=== PATIENT | male | born 1950 | race Caucasian/White ===

== ENCOUNTER → 2018-04-19 | Outpatient (CLI) | payer OTHER, MEDICARE ==
[~2018-04-19] MED LIST: ASPIRIN325 PO; AZOR 5-40 MG T1 EACH PO; BETIMOL10 ML; BETIMOL15 ML OP; CELEXA 20 MG TA20 MG PO; CENTRUM SILVER1 EAC2 PO; COZAAR 50 MG TA50 M1 PO; CRESTOR10 MG PO; DEPAKOTE ER500 M1 PO; DEPAKOTE ER500 MG PO; DEPAKOTE500 MG PO; DILANTIN100 MG PO; DUREZOL5 ML; FISH OIL 1,0001 EAC5 PO; HYDROCODON-ACE1 EAC5 PO; LEXAPRO 10 MG T10 M1 PO; LISINOPRIL-HCT1 EACH PO; LOVASTAT40 PO; MEVACOR 20 MG T20 MG; NITROSTAT0.4 MG; OMEPRAZOLE20 M2 PO; PAXIL 20 MG TAB20 M1; PHENYTOIN SODI100 M3 PO; PLAVIX 75 MG TA75 MG PO; RESTORIL15 MG; SUPER B COMPLE150 MG PO; TEGRETOL XR400 MG PO; TEGRETOL100 MG/5 M PO; TYLENOL325 MG; VITAMIN D3400 UNIT PO; VITAMINC500 PO; XALATAN2.5 M1 OP; XANAX 0.5 MG0.5 MG PO
== END ==
LOC: M.ULTRA 04-17 10:30
DX: N43.2 Other hydrocele (principal); N50.89 Other specified disorders of the male genital organs

== ENCOUNTER → 2018-06-26 | Outpatient (CLI) | payer OTHER, MEDICARE ==
[2018-06-26 15:03] LABS: ABSOLUTE EOSINOPHILS 0.4 thou/uL (0.0-0.7); ABSOLUTE LYMPHOCYTES 2.9 thou/uL (0.8-5.3); ABSOLUTE MONOCYTES 0.5 thou/uL (0.0-1.2); ABSOLUTE NEUTROPHILS 2.8 thou/uL (1.6-8.1); BASOPHILS 0.6 %; EOSINOPHILS 5.5 %; HEMATOCRIT 40.9 % (42.0-52.0); HEMOGLOBIN 13.8 gm/dL (14.0-18.0); LYMPHOCYTES 43.9 %; MCH 31.2 pg (26.0-34.0); MCHC 33.8 g/dL (28.0-37.0); MCV 92.4 fL (80.0-100.0); MONOCYTES 7.1 %; MPV 8.8 fl. (7.2-11.1); NUCLEATED RBCS 0 /100WBC; PLATELET COUNT* 168 thou/uL (150-400); POLYS 42.9 %; RBC 4.42 mil/uL (4.50-6.00); RDW-CV 14.4 % (10.5-14.5); WBC 6.6 thou/uL (4.0-11.0)
[2018-06-26 15:16] LABS: ALBUMIN 3.1 g/dL (3.4-5.0); CALCIUM 8.3 mg/dL (8.5-10.1); POTASSIUM 4.1 mmol/L (3.5-5.1); TOTAL BILIRUBIN 0.3 mg/dL (<0.1-1.0)
[2018-06-26 15:46] LABS: DILANTIN 4.2 mcg/mL (10.0-20.0); VALPROIC ACID (DEPAKENE) 80.3 mcg/mL (50-100)
== END ==
LOC: M.LAB 14:28
PROVIDERS: Psychiatry & Neurology Neuromuscular Medicine
DX: R56.9 Unspecified convulsions (principal); I10 Essential (primary) hypertension

== ENCOUNTER → 2018-11-07 | Outpatient (CLI) | payer OTHER, MEDICARE ==
[2018-11-07 14:37] LABS: ABSOLUTE BASOPHILS 0.1 thou/uL (0.0-0.2); ABSOLUTE EOSINOPHILS 0.5 thou/uL (0.0-0.7); ABSOLUTE LYMPHOCYTES 2.4 thou/uL (0.8-5.3); ABSOLUTE MONOCYTES 0.6 thou/uL (0.0-1.2); ABSOLUTE NEUTROPHILS 3.2 thou/uL (1.6-8.1); BASOPHILS 1.4 %; EOSINOPHILS 7.3 %; HEMATOCRIT 45.8 % (42.0-52.0); HEMOGLOBIN 15.5 gm/dL (14.0-18.0); LYMPHOCYTES 35.5 %; MCH 32.2 pg (26.0-34.0); MCHC 33.9 g/dL (28.0-37.0); MCV 95.1 fL (80.0-100.0); MONOCYTES 9.1 %; MPV 8.7 fl. (7.2-11.1); NUCLEATED RBCS 0 /100WBC; PLATELET COUNT* 239 thou/uL (150-400); POLYS 46.7 %; RBC 4.81 mil/uL (4.50-6.00); RDW-CV 13.2 % (10.5-14.5); WBC 6.8 thou/uL (4.0-11.0)
[2018-11-07 14:51] LABS: ALBUMIN 3.3 g/dL (3.4-5.0); CALCIUM 8.8 mg/dL (8.5-10.1); CREATININE 1.2 mg/dL (0.6-1.3); POTASSIUM 3.9 mmol/L (3.5-5.1); TOTAL BILIRUBIN 0.3 mg/dL (<0.1-1.0)
== END ==
LOC: M.LAB 14:16
PROVIDERS: Psychiatry & Neurology Neuromuscular Medicine
DX: R56.9 Unspecified convulsions (principal); Z87.898 Personal history of other specified conditions

== ENCOUNTER → 2019-02-13 | Outpatient (CLI) | payer OTHER, MEDICARE | LOC: M.RAD 14:46 | DX: R07.89 Other chest pain (principal) ==

== ENCOUNTER → 2019-02-26 | Outpatient (CLI) | payer OTHER, MEDICARE | LOC: M.RAD 15:34 | DX: M50.13 Cervical disc disorder with radiculopathy, cervicothoracic region (principal); M47.22 Other spondylosis with radiculopathy, cervical region; M40.293 Other kyphosis, cervicothoracic region; R06.00 Dyspnea, unspecified; R05 Cough; R07.1 Chest pain on breathing ==

== ENCOUNTER → 2019-09-11 | Outpatient (CLI) | payer OTHER ==
[2019-09-11 14:04] LABS: ABSOLUTE BASOPHILS 0.1 thou/uL (0.0-0.2); ABSOLUTE EOSINOPHILS 0.5 thou/uL (0.0-0.7); ABSOLUTE LYMPHOCYTES 2.5 thou/uL (0.8-5.3); ABSOLUTE MONOCYTES 0.7 thou/uL (0.0-1.2); BASOPHILS 0.8 %; EOSINOPHILS 7.6 %; HEMATOCRIT 43.1 % (42.0-52.0); HEMOGLOBIN 14.6 gm/dL (14.0-18.0); LYMPHOCYTES 37.4 %; MCH 30.3 pg (26.0-34.0); MCHC 33.9 g/dL (28.0-37.0); MCV 89.4 fL (80.0-100.0); MONOCYTES 9.9 %; MPV 8.6 fl. (7.2-11.1); NUCLEATED RBCS 0 /100WBC; PLATELET COUNT* 224 thou/uL (150-400); POLYS 44.3 %; RBC 4.82 mil/uL (4.50-6.00); RDW-CV 14.4 % (10.5-14.5); WBC 6.8 thou/uL (4.0-11.0)
[2019-09-11 14:19] LABS: ALBUMIN 3.5 g/dL (3.4-5.0); CALCIUM 8.3 mg/dL (8.5-10.1); CREATININE 1.1 mg/dL (0.6-1.3); TOTAL BILIRUBIN 0.2 mg/dL (<0.1-1.0)
[2019-09-11 14:35] LABS: CARBAMAZEPINE 4.8 mcg/mL (3.0-12.0)
[2019-09-11 16:42] LABS: DILANTIN 5.5
== END ==
LOC: M.LAB 13:37
PROVIDERS: ATTEND Psychiatry & Neurology Neuromuscular Medicine
DX: G40.209 Localization-related (focal) (partial) symptomatic epilepsy and epileptic syndromes with complex partial seizures, not intractable, without status epilepticus (principal); Z85.89 Personal history of malignant neoplasm of other organs and systems; Z79.899 Other long term (current) drug therapy

== ENCOUNTER → 2020-08-12 | Outpatient (CLI) | payer OTHER ==
[2020-08-12 11:20] LABS: ABSOLUTE EOSINOPHILS 0.5 thou/uL (0.0-0.7); ABSOLUTE LYMPHOCYTES 2.7 thou/uL (0.8-5.3); ABSOLUTE MONOCYTES 0.8 thou/uL (0.0-1.2); ABSOLUTE NEUTROPHILS 3.4 thou/uL (1.6-8.1); BASOPHILS 0.5 %; EOSINOPHILS 6.2 %; LYMPHOCYTES 36.3 %; MCH 30.3 pg (26.0-34.0); MCHC 33.4 g/dL (28.0-37.0); MCV 90.9 fL (80.0-100.0); MONOCYTES 10.7 %; MPV 8.2 fl. (7.2-11.1); NUCLEATED RBCS 0 /100WBC; PLATELET COUNT* 222 thou/uL (150-400); POLYS 46.3 %; RBC 4.62 mil/uL (4.50-6.00); RDW-CV 14.9 % (10.5-14.5); WBC 7.4 thou/uL (4.0-11.0)
[2020-08-12 11:38] LABS: ALBUMIN 3.4 g/dL (3.4-5.0); CALCIUM 8.7 mg/dL (8.5-10.1); POTASSIUM 4.4 mmol/L (3.5-5.1); TOTAL BILIRUBIN 0.2 mg/dL (<0.1-1.0); TOTAL PROTEIN 8.1 g/dL (6.4-8.2)
[2020-08-12 11:48] LABS: PHENYTOIN 6.5 mcg/mL (10.0-20.0)
[2020-08-12 21:05] LABS: CARBAMAZEPINE 5.7 ug/mL (4.0-12.0)
== END ==
LOC: M.LAB 10:26
PROVIDERS: ATTEND Psychiatry & Neurology Neuromuscular Medicine
DX: G40.209 Localization-related (focal) (partial) symptomatic epilepsy and epileptic syndromes with complex partial seizures, not intractable, without status epilepticus (principal)

== ENCOUNTER 2020-11-12 09:57 | Observation (INO) | payer OTHER ==
[~2020-11-12] VITALS: Ht 177.8 cm; Wt 101.2 kg
[2020-11-12] VITALS (15 sets, daily range): BP systolic 145–176; BP diastolic 70–88
--- NOTE | ~2020-11-12 | H ---
[address] [address] HISTORY AND PHYSICAL Name: DHARMESH CHRISTOPHER Room: [address] [place] M.R.#: [id number] Admission: 11/12/20 Attend Phys: Dharmesh Muniz MD, Discharge: 11/13/20 Date of : 50 Report #: [id number] THIS REPORT FOR: cc: Krystle Kaur MD, Lin W. MD [facility],Medical Records Staff ~ Please refer to the History and Physical performed in the physician's office. By: [id number] Records Staff [facility] /JOSE
--- NOTE | ~2020-11-12 | D ---
[address] [address] DISCHARGE SUMMARY Name: DHARMESH CHRISTOPHER Room: [address] [place] MPavan#: [id number] Admission: 11/12/20 Attend Phys: Dharmesh Muniz MD, Discharge: 11/13/20 Date of : 50 Report #: [id number] THIS REPORT FOR: cc: Krystle Kaur MD, Lin W. MD Holkins, John M. MD [facility] ~ DATE OF DISCHARGE: 11/13/2020 FINAL DISCHARGE DIAGNOSES: 1. Unstable angina. 2. Abnormal nuclear stress test. 3. Coronary artery disease. 4. Hypertension. 5. Hyperlipidemia. 6. Obstructive sleep apnea. 7. Status post percutaneous coronary intervention to the proximal--mid left anterior descending. PROCEDURES: On 11/12/2020 -- left heart catheterization, left ventriculography, selective coronary arteriography, fractional flow reserve calculated pertinent to the proximal--mid LAD lesion and angioplasty, atherectomy and stenting of the proximal--mid LAD. HOSPITAL COURSE: The patient is a 70-year-old male who recently noted marked increase in dyspnea on exertion. He is able to climb only one flight of steps without becoming markedly dyspneic. Nuclear stress test was abnormal with apical defect. In this context with known risk factors of hypertension and hyperlipidemia, I performed cardiac catheterization on 11/12/2020. That study revealed significant coronary artery disease, characterized by the following: A. A 75% tubular proximal--mid LAD in-stent restenosis. B. A 60% narrowing of the distal circumflex. LV function was normal with estimated ejection fraction of 55%-60%. Given this data, I elected to proceed with physiologic assessment of the proximal--mid LAD and FFR was performed. The resting Pd/Pa was abnormal at 0.89. After adenosine provocation, the FFR was borderline abnormal at 0.81. Given the recent symptomatic status, the abnormal nuclear stress test, and the aforementioned physiologic findings, I elected to proceed with a PCI to the proximal--mid LAD. I performed angioplasty, atherotomy/atherectomy and stenting of the proximal--mid LAD, deploying a 3.0 x 26 mm Vinnie drug-eluting stent in the proximal--mid LAD with 10% residual narrowing and PAULINE 3 flow [place] [address] DISCHARGE SUMMARY Name: DHARMESH CHRISTOPHER Room: [address] [place] Singh#: [id number] Admission: 11/12/20 Attend Phys: Dharmesh Muniz MD, Discharge: 11/13/20 Date of : 50 Report #: [id number] The patient did well post-procedure without chest pain and ambulated in the hallways without difficulty. There was good hemostasis at the right femoral site of catheterization. Laboratory data on 11/13 revealed sodium 141, potassium 3.8, BUN 19, creatinine 1.0, glucose 105. Hemoglobin 12.4, white blood cell count 8400 with 204,000 platelets. Cholesterol 142, triglycerides 209, HDL 38, LDL 63. The patient ambulated in the hallways without difficulty. High sensitivity troponin was elevated at 589. DISCHARGE MEDICATIONS: The patient was discharged home on the following medications: Prasugrel 10 mg daily, aspirin 81 mg daily, p.r.n. sublingual nitroglycerin, losartan 50 mg daily, phenytoin 200 mg daily, omeprazole 40 mg daily, multivitamin with mineral 1 tablet daily, carbamazepine or Tegretol 300 mg b.i.d., metoprolol succinate 50 mg daily, rosuvastatin 20 mg daily, duloxetine 30 mg daily, docusate 240 mg b.i.d., zinc 50 mg daily, loratadine 10 mg daily. The patient is scheduled to return to see me on 12/15/2020. Therefore, the patient is discharged home in stable condition on the aforementioned medications with followup as described above. By: 0921 0947Dharmesh Muniz MD, [facility] /nt
[2020-11-12 10:38] LABS: HEMATOCRIT 40.6 % (42.0-52.0); HEMOGLOBIN 13.5 gm/dL (14.0-18.0); MCH 29.7 pg (26.0-34.0); MCHC 33.3 g/dL (28.0-37.0); MCV 89.3 fL (80.0-100.0); MPV 8.6 fl. (7.2-11.1); RBC 4.55 mil/uL (4.50-6.00); RDW-CV 14.1 % (10.5-14.5); WBC 6.9 thou/uL (4.0-11.0)
[2020-11-12] MEDS ORDERED: DULOXETINE HCL30 MG PO (10:44)
[2020-11-12] MEDS ORDERED: TOPROL XL50 MG PO (10:44)
[2020-11-12] MEDS ORDERED: ROSUVASTATIN CA20 MG PO (10:44)
[2020-11-12] MEDS ORDERED: ZINC50 M1 PO (10:45)
[2020-11-12] MEDS ORDERED: DOCUSATE CALCI240 MG PO (10:45)
[2020-11-12] MEDS ORDERED: ASPIRIN325 PO (10:45)
[2020-11-12] MEDS ORDERED: LORATIDINE 10 M10 M1 PO (10:45)
[2020-11-12 10:46] LABS: APTT 27.7 Seconds (25.0-31.3); PROTIME 10.3 Seconds (9.20-11.50)
[2020-11-12 10:47] LABS: ALBUMIN 3.4 g/dL (3.4-5.0); ALKALINE PHOSPHATASE 135 U/L (46-116); ANION GAP 10 mmol/L (7-16); BUN 24 mg/dL (7-18); CALCIUM 8.4 mg/dL (8.5-10.1); CHLORIDE 105 mmol/L (98-107); CHOLESTEROL 142 mg/dL (<200); CO2 27 mmol/L (21-32); CREATININE 1.1 mg/dL (0.6-1.3); GLUCOSE 125 mg/dL (70-99); HDL CHOLESTEROL 38 mg/dL (>40); LDL CHOLESTEROL 63 mg/dL (<100); POTASSIUM 4.3 mmol/L (3.5-5.1); SGOT 26 U/L (15-37); SGPT 40 U/L (30-65); SODIUM 142 mmol/L (136-145); TC:HDL 3.7 Ratio (Not establshd); TOTAL BILIRUBIN 0.2 mg/dL (<0.1-1.0); TRIGLYCERIDE 209 mg/dL (<150); VLDL 42 mg/dL (<40)
[2020-11-12 10:51] LABS: SERUM ASSESSMENT Clear
--- NOTE | 2020-11-12 10:54 | EKG ---
[place] [address] ELECTROCARDIOGRAM REPORT Name: DHARMESH CHRISTOPHER Room: 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 : 1950 Requested By: Dharmesh Muniz Order Number: [id number] Marco MD: Dharmesh Muniz Measurements Intervals [place] Rate: 74 P: 38 NE: 224 QRS: 0 QRSD: 118 T: 78 QT: 397 QTc: 441 Interpretive Statements Sinus rhythm Incomplete left bundle branch block Inferior infarct, old Borderline ST elevation, anterior leads Compared to ECG 06/12/2015 12:13:20 Incomplete left bundle-branch block now present Myocardial infarct finding now present ST (T wave) deviation now present Electronically Signed On 11-12-2020 10:54:33 CDT by Dharmesh Muniz [email or web address] <ELECTRONICALLY SIGNED> By: Dharmesh Muniz MD, [facility] 11/12/20 1054 1027 1027 Dharmesh Muniz MD, [facility] /EPI
--- NOTE | 2020-11-12 17:47 | CARD ---
[address] [address] CARDIAC CATH REPORT Name: DHARMESH CHRISTOPHER Room: [address] [place] M.R.#: [id number] Admission: 11/12/20 Attend Phys: Dharmesh Muniz MD, Discharge: Date of : 50 Report #: [id number] THIS REPORT FOR: cc: Krystle Kaur MD, Lin W. MD Holkins, John M. MD [facility] ~ APPROVED REPORT Study performed: 11/12/2020 10:53:56 Patient Details Patient Status: Out-Patient Room #: The patient is a 70 year-old male Event Personnel Dharmesh Muniz Rag Collector, Sindy Auguste RN Cardiopulmonary Technologist Chief, Michelle Guaman RN Monitor, Veronika Post RTR ScrubBecca Adam RTR Monitor Procedures Performed Left Heart Cath w/or w/o Coronaries [id number] C FFR [id number] FFR ASHIA w/Atherectomy Single LAD C9602 DESAT Hemostasis w/ Angioseal Indication Unstable angina Risk Factors Obesity, Hypercholesterolemia, Hypertension Previous Procedures/Diagnoses Previous PCI Admission/Lab Medications/Medications given during procedure Versed IV 2 mg, Fentanyl IV 25 mcg, Lidocaine Subcut 20 ml, Heparin IV 7000 units, Nitroglycerin IC 200 mcg, Adenosine IV 851.7 mg, Angiomax IV 15 ml, Angiomax IV 35.5 ml per hr, Effient PO 60 mg, Aspirin PO 162 mg Procedure Narrative The patient was brought electively to the Cardiac Catheterization Laboratory and was prepped and draped in a sterile manner. The right femoral was infiltrated with 2% Lidocaine subcutaneous anesthesia. IV conscious sedation was [place] [address] CARDIAC CATH REPORT Name: DHARMESH CHRISTOPHER DAVID Room: [address] MEloR.#: [id number] Admission: 11/12/20 Attend Phys: Dharmesh Muniz MD, Discharge: Date of : 50 Report #: [id number] monitoring and was performed in the presence of a registered nurse who was an independent trained observer other than the physician performing the procedure. A [place] 6 FR sheath was inserted into the right femoral artery. Coronary angiography was performed using coronary diagnostic catheters. The right coronary system was accessed and visualized with a Diagnostic JR4 6Fr catheter. The left coronary system was accessed and visualized with a Diagnostic JL4 6Fr catheter. The left ventricle was accessed and visualized with a Diagnostic Pigtail 6Fr catheter. Left ventricular/Aortic Valve gradient assessed via catheter pullback. Left ventriculogram was performed in ENGLISH projection. Pre-demployment femoral angiogram was performed . Closure device was deployed with a 6 Fr Angioseal. The patient tolerated the procedure well and there were no complications associated with the procedure. There was no hematoma. Intraoperative Conscious Sedation Sedation start time: 1114 Case end Time: 1221 Fentanyl 25 mcg Versed 2 mg Fluoro Time: 13.6 minutes Dose: DAP 027987 cGycm2 1769.02 mGy Contrast Type and Amount: Visipaque 320 ml Coronary Angiography The patient's coronary anatomy is left dominant. Diagnostic Cath Left Main 0% narrowing LAD 75% tubular proximalmid LAD in-stent restenosis Circumflex 40% proximal first marginal narrowing with 60% tubular narrowing of the distal circumflex before the posterior descending branch Right Coronary Small nondominant vessel which is normal Left Ventriculography The left ventricle is normal in size with normal contractility. The left ventricular ejection fraction is estimated to be 55-60%. Left ventricular wall motion abnormalities are not present. There is no mitral insufficiency. IVUS Anticoagulation was achieved with Heparin. Fractional Flow [place] was performed on the Proximalmid LAD vessel. A 6 [place] XB 3.5 Guide Catheter was used to [place] [address] CARDIAC CATH REPORT Name: DHARMESH CHRISTOPHER Room: [address] M.R.#: [id number] Admission: 11/12/20 Attend Phys: Dharmesh Muniz MD, Discharge: Date of : 50 Report #: [id number] IVUS Findings After passing a flow wire through the guiding catheter, PD/PA was measured and was abnormal at 0.89. Fractional flow reserve was assessed after adenosine provocation with a minimum value of 0.81. Given the clinical picture of unstable angina, the abnormal resting PD/PA, and the borderline abnormal normal fractional flow reserve after adenosine provocation, I elected to proceed with PCI to the proximalmid LAD. Hemodynamics The aortic pressure is 158/64 mmHg with a mean of 98 mmHg. The left ventricular pressure is 157/9 mmHg with a mean of mmHg. The left ventricular end diastolic pressure is 20 mmHg. There was no gradient across the aortic valve upon pullback. PCI Technique Lesion Anticoagulation was achieved with Angiomax. 15mL Percutaneous coronary intervention was performed on the proximal left anterior descending artery segment. The lesion stenosis prior to intervention was 75% with PAULINE 3 flow. A 6FR XB 3.5 100CM Guide Catheter was used to engage the Left ostium. A IG: BMW 190cm Interventional Guidewire was used to cross the lesion. BALLOON DILATION A Balloon catheter NC Trek RX 3.0 X 12 was inserted and inflated up to 18.00atm for 12seconds. Additional Inflation: 18.00atm for 10seconds. Additional Inflation: 20.00atm for 10seconds. A Cutting Balloon Catheter AngioSculpt PTCA 3.0 X 10mm was inserted and inflated up to 12.00atm for 15 seconds. Additional Inflation: 14.00atm for 14 seconds. STENT DEPLOYMENT A drug-eluting stent Monroe RX Stent 3.0X26mm was inserted and inflated up to 16.00atm for 15seconds. Additional Inflation: 18.00atm for 12seconds. Final angiography reveals 10 % stenosis with PAULINE 3 flow. PCI Technique Lesion The lesion stenosis prior to intervention was Proximalmid LAD% with PAULINE 6 [place]une[place] XB 3.5 flow. A Left Guide Catheter was used to engage the ostium. BALLOON DILATION [facility] [address] [place] [address] CARDIAC CATH REPORT Name: DHARMESH CHRISTOPHER Room: M.208Ajay Singh#: [id number] Admission: 11/12/20 Attend Phys: Dharmesh Muniz MD, Discharge: Date of : 50 Report #: [id number] A Balloon catheter After passing a flow wire through the guiding catheter, PD/PA was measured and was abnormal at 0.89. Fractional flow reserve was assessed after adenosine provocation with a minimum value of 0.81. Given the clinical picture of unstable angina, the abnormal resting PD/PA, and the borderline abnormal normal fractional flow reserve after adenosine provocation, I elected to proceed with PCI to the proximalmid LAD. was inserted and inflated up to charleen for seconds. Conclusion 1. Significant coronary artery disease characterized by the following: A 75% tubular proximalmid LAD in-stent restenosis B 60% narrowing of the distal portion of the dominant circumflex with 40% proximal first marginal narrowing 2. Normal left ventricular systolic function, estimate ejection fraction 55-60% 3 moderate elevation of left ventricular end-diastolic pressure at rest 4. Hemodynamic assessment of the proximalmid LAD lesion revealed an abnormal PD divided by PA of 0.89 with a borderline abnormal FFR of 0.81 5. Successful PCI with PTCA, atherotomy/atherectomy and deployment of drug-eluting stent at the site of 75% proximalmid LAD in-stent restenosis with 10% residual narrowing and PAULINE-3 flow to the distal vessel Recommendations Cardiac Risk Reduction Program Aggressive Medical Therapy Medications Administered Aspirin (any) [place] [address] CARDIAC CATH REPORT Name: DHARMESH CHRISTOPHER DAVID Room: [facility] [place] MEloR.#: [id number] Admission: 11/12/20 Attend Phys: Dharmesh Muniz MD, Discharge: Date of : 50 Report #: [id number] Diagnostic Cath Approved by: Dharmesh Muniz MD Date/Time: 11/12/2020 17:34:21 <ELECTRONICALLY SIGNED> By: Dharmesh Muniz MD, [facility] 11/12/20 1746 1746 1746Dharmesh Muniz MD, FACC /INF
[2020-11-13 00:30] VITALS: BP 146/76
[2020-11-13 04:00] VITALS: BP 153/72
[2020-11-13 05:05] LABS: HEMATOCRIT 37.6 % (42.0-52.0); HEMOGLOBIN 12.4 gm/dL (14.0-18.0); MCH 29.5 pg (26.0-34.0); MCV 89.2 fL (80.0-100.0); MPV 8.7 fl. (7.2-11.1); RBC 4.22 mil/uL (4.50-6.00); RDW-CV 13.8 % (10.5-14.5); WBC 8.4 thou/uL (4.0-11.0)
[2020-11-13 05:40] LABS: CALCIUM 8.1 mg/dL (8.5-10.1); CK-MB MASS 3.5 ng/mL (<0.5-3.6); POTASSIUM 3.8 mmol/L (3.5-5.1); TOTAL BILIRUBIN 0.3 mg/dL (<0.1-1.0); TOTAL PROTEIN 7.1 g/dL (6.4-8.2)
--- NOTE | 2020-11-13 06:07 | NUR ---
pt stable and remains free from injury. dasilva intact, good urine output. pain managed with tylenol. incision site continue to be clean, dry, and intact. fluids continue to infuse.
[2020-11-13 08:00] VITALS: BP 167/96
[2020-11-13] MEDS ORDERED: EFFIENT10 MG PO (08:24)
[2020-11-13] MEDS ORDERED: BAYER CHEWABLE81 MG PO (08:25)
[2020-11-13] MEDS ORDERED: NITROGLYCERIN0.4 MG SUBLING (08:25)
[2020-11-13 09:29] VITALS: BP 167/90
--- NOTE | 2020-11-13 10:05 | NUR ---
The patieint is alert. Able to make needs known. Call light within reach. Taty cather removed.
--- NOTE | 2020-11-13 10:40 | NUR ---
The patient has voided. Discharge insuctions given to the patient. no questions voiced. IV accesss and monitor removed.
--- NOTE | 2020-11-13 11:40 | NUR ---
The patient was wheeled to his car. All belonings removed by the patient and .
--- NOTE | 2020-11-13 12:24 | EKG ---
[place] [address] ELECTROCARDIOGRAM REPORT Name: DHARMESH CHRISTOPHER Room: [address] M.R.#: [id number] Admission: 11/12/20 Attend Phys: Dimitri Ramos Discharge: 11/13/20 Date of : 50 Date of Service: 11/13/209[address] Report #: [id number] THIS REPORT FOR: //name// [facility] Test Date: 2020-11-13 Test Time: 09:18:02 Pat Name: DHARMESH CHRISTOPHER Department: Room: [facility] Gender: M Svp Of Digital: NORTH : 1950 Requested By: Dharmesh Muniz Order Number: [id number] Reading MD: Tomasz Khalil Measurements Intervals [place] Rate: 82 P: 8 SC: 198 QRS: 60 QRSD: 113 T: 62 QT: 406 QTc: 475 Interpretive Statements Sinus rhythm poor r wave progression Borderline intraventricular conduction delay Low voltage, extremity leads Compared to ECG 11/12/2020 10:27:53 no change Electronically Signed On 11-13-2020 12:24:06 CDT by Tomasz Khalil [email or web address] <ELECTRONICALLY SIGNED> By: Tomasz Khalil MD, [facility] 11/13/20 1224 7 7 Tomasz Khalil MD, [facility] /EPI
== END 2020-11-13 11:45 | disposition home or self-care (01) ==
LOC: M.CL 09:57 → M.TBA-CV 12:34 → M.2W 16:00
PROVIDERS: ADMIT Internal Medicine; ATTEND Internal Medicine
DX: I25.110 Atherosclerotic heart disease of native coronary artery with unstable angina pectoris (principal); Z20.822 Contact with and (suspected) exposure to COVID-19; I10 Essential (primary) hypertension; E78.5 Hyperlipidemia, unspecified; G47.33 Obstructive sleep apnea (adult) (pediatric); Z79.82 Long term (current) use of aspirin; Z79.899 Other long term (current) drug therapy

== ENCOUNTER 2020-11-20 12:33 | Inpatient (IN) | payer OTHER ==
[~2020-11-20] VITALS: Ht 177.8 cm; Wt 104.3 kg
[~2020-11-20 12:33] MED LIST changes: +BAYER CHEWABLE81 MG PO; +DOCUSATE CALCI240 MG PO; +DULOXETINE HCL30 MG PO; +EFFIENT10 MG PO; +LORATIDINE 10 M10 M1 PO; +NITROGLYCERIN0.4 MG SUBLING; +ROSUVASTATIN CA20 MG PO; +TOPROL XL50 MG PO; +ZINC50 M1 PO
[2020-11-20 12:52] VITALS: BP 154/54
[2020-11-20 17:18] LABS: ABSOLUTE BASOPHILS 0.1 thou/uL (0.0-0.2); ABSOLUTE EOSINOPHILS 0.5 thou/uL (0.0-0.7); ABSOLUTE LYMPHOCYTES 2.5 thou/uL (0.8-5.3); ABSOLUTE MONOCYTES 0.8 thou/uL (0.0-1.2); ABSOLUTE NEUTROPHILS 3.8 thou/uL (1.6-8.1); BASOPHILS 0.9 %; EOSINOPHILS 6.4 %; HEMATOCRIT 40.2 % (42.0-52.0); HEMOGLOBIN 13.3 gm/dL (14.0-18.0); LYMPHOCYTES 32.5 %; MCH 29.8 pg (26.0-34.0); MCHC 32.9 g/dL (28.0-37.0); MCV 90.4 fL (80.0-100.0); MPV 8.8 fl. (7.2-11.1); NUCLEATED RBCS 0 /100WBC; PLATELET COUNT* 239 thou/uL (150-400); POLYS 50.2 %; RBC 4.45 mil/uL (4.50-6.00); RDW-CV 13.9 % (10.5-14.5); WBC 7.6 thou/uL (4.0-11.0)
[2020-11-20 17:26] LABS: CALCIUM 8.7 mg/dL (8.5-10.1); POTASSIUM 4.5 mmol/L (3.5-5.1)
[2020-11-20 17:31] LABS: ALBUMIN 3.3 g/dL (3.4-5.0); TOTAL BILIRUBIN 0.2 mg/dL (<0.1-1.0)
[2020-11-20 18:35] LABS: ESR (SEDRATE) 47 mm/hr (0-20)
[2020-11-20] MEDS ORDERED: EQUETRO300 MG PO ×2 (20:05→20:06)
[2020-11-20 20:12] VITALS: BP 126/86
[2020-11-21 01:13] VITALS: BP 170/76
[2020-11-21 03:26] VITALS: BP 180/91
[2020-11-21 03:58] LABS: ABSOLUTE EOSINOPHILS 0.5 thou/uL (0.0-0.7); ABSOLUTE LYMPHOCYTES 2.5 thou/uL (0.8-5.3); ABSOLUTE MONOCYTES 0.6 thou/uL (0.0-1.2); ABSOLUTE NEUTROPHILS 4.1 thou/uL (1.6-8.1); BASOPHILS 0.4 %; HEMATOCRIT 37.6 % (42.0-52.0); HEMOGLOBIN 12.8 gm/dL (14.0-18.0); LYMPHOCYTES 32.8 %; MCH 30.6 pg (26.0-34.0); MCHC 34.1 g/dL (28.0-37.0); MCV 89.6 fL (80.0-100.0); MONOCYTES 7.8 %; MPV 8.9 fl. (7.2-11.1); NUCLEATED RBCS 0 /100WBC; PLATELET COUNT* 221 thou/uL (150-400); RBC 4.19 mil/uL (4.50-6.00); WBC 7.8 thou/uL (4.0-11.0)
[2020-11-21 04:13] LABS: CALCIUM 8.5 mg/dL (8.5-10.1); CREATININE 0.9 mg/dL (0.6-1.3)
[2020-11-21 05:44] VITALS: BP 141/81
[2020-11-21 08:18] VITALS: BP 157/74
[2020-11-21 12:30] VITALS: BP 143/71
--- NOTE | 2020-11-21 13:37 | NUR ---
Pt is A&O. Resides at home with . Normally independent. Pt is here for worsening hip pain. Pt states that he fell some time ago and has had hip pain, but it has gotten progressively worse, Pt states he can barely walk. Pt uses a cane PRN. Hx of outpt PT. No hx of HH or SNF. Ortho consulted. Therapies ordered. Pain control. Pt is hopeful to be able to return home at [place], dispo pending further workup.
[2020-11-21 16:22] VITALS: BP 169/88
--- NOTE | 2020-11-21 18:09 | NUR ---
PATIENT HAS REMAINED A&OX4, PLEASANT AND COOPERATIVE WITH CARES THIS SHIFT. MEDICATIONS ADMINISTERED ORDERED. NEW IV PLACED IN PATIENT'S LEFT HAND OTHER CAME OUT. PATIENT UP X1 ASSIST. CALL LIGHT AND FREQUENTLY USED ITEMS WITHIN REACH.
[2020-11-22] VITALS: BP 141/63
[2020-11-22 10:00] VITALS: BP 162/78
[2020-11-22 12:30] VITALS: BP 144/86
[2020-11-22 17:29] VITALS: BP 159/81
--- NOTE | 2020-11-22 19:46 | NUR ---
Assumed care at 0730. Pt is alert and oriented. Assessment done and charted. Pt had unevenful day. Will continue plan of care.
[2020-11-22 21:30] VITALS: BP 160/82
[2020-11-23 08:00] VITALS: BP 157/89
[2020-11-23] MEDS ORDERED: NAPROSYN500 MG PO (08:54)
[2020-11-23] MEDS ORDERED: PERCOCET PO (08:54)
[2020-11-23] MEDS ORDERED: LIDOPATCH1 EACH TOP (08:54)
[2020-11-23] MEDS ORDERED: MEDROLDOSEPACK PO (08:54)
[2020-11-23 11:51] VITALS: BP 157/89
[2020-11-23 12:49] VITALS: BP 157/89
[2020-11-23 13:08] VITALS: BP 157/89
[2020-11-23 15:40] VITALS: BP 157/89
== END 2020-11-23 15:35 | disposition home health service (06) | DRG 552 ==
LOC: M.ERS 12:33 → M.2W 16:57 → M.TBA-ER 16:57 → M.2W 20:20
PROVIDERS: Physician Assistant; ADMIT Internal Medicine; ATTEND Internal Medicine
DX: M54.31 Sciatica, right side (principal); Z96.641 Presence of right artificial hip joint; I25.10 Atherosclerotic heart disease of native coronary artery without angina pectoris; I10 Essential (primary) hypertension; Z20.822 Contact with and (suspected) exposure to COVID-19; Z91.81 History of falling; Z85.840 Personal history of malignant neoplasm of eye; Z98.49 Cataract extraction status, unspecified eye; Z86.14 Personal history of Methicillin resistant Staphylococcus aureus infection; Z95.5 Presence of coronary angioplasty implant and graft; Z91.09 Other allergy status, other than to drugs and biological substances; Z79.899 Other long term (current) drug therapy; Z79.82 Long term (current) use of aspirin; Z87.891 Personal history of nicotine dependence